=== PATIENT | female | born 1965 | race Caucasian/White ===

== ENCOUNTER → 2017-02-13 | Outpatient (CLI) | payer BC ==
--- NOTE | 2017-02-14 11:15 | MM ---
Reason for exam: screening (asymptomatic). Last mammogram was performed 1 year and 5 months ago. History: Family history of breast cancer in paternal aunt. Physical Findings: A clinical breast exam by your physician is recommended on an annual basis and results should be correlated with mammographic findings. MG Screening Mammo w CAD Bilateral CC and MLO view(s) were taken. Prior study comparison: September 14, 2015, bilateral MG screening mammo w CAD. July 10, 2014, bilateral MG screening mammo w CAD. The breast tissue is heterogeneously dense. This may lower the sensitivity of mammography. No significant changes when compared with prior studies. ASSESSMENT: Benign, BI-RAD 2 RECOMMENDATION: Routine screening mammogram of both breasts in 1 year.
== END ==
LOC: RADMAMWWP 09:29
PROVIDERS: ATTEND Family Medicine
DX: Z12.31 Encounter for screening mammogram for malignant neoplasm of breast (principal)

== ENCOUNTER → 2017-10-24 | Outpatient (CLI) | payer BC ==
--- NOTE | 2017-10-24 15:36 | XR ---
EXAMINATION TYPE: XR thoracic spine complete DATE OF EXAM: 10/24/2017 COMPARISON: None HISTORY: Pain lower posterior thorax TECHNIQUE: Three-view thoracic spine FINDINGS: There are 12 thoracic type vertebral bodies. Pedicles are intact. Disc heights are preserve d. Vertebral body heights are preserved. Some spondylosis is present. IMPRESSION: 1. No acute osseous abnormality thoracic spine.
== END | disposition home or self-care (01) ==
LOC: RADXRYALE 14:17
PROVIDERS: ATTEND Physician Assistant Medical
DX: M54.6 Pain in thoracic spine (principal)
CPT/HCPCS: 72072

== ENCOUNTER → 2018-05-22 | Outpatient (CLI) | payer BC ==
--- NOTE | 2018-05-22 16:50 | XR ---
EXAMINATION TYPE: XR lumbosacral spine min 4V DATE OF EXAM: 05/22/2018 COMPARISON: None HISTORY: Increasing chronic low back pain TECHNIQUE: Five-view lumbar spine FINDINGS: There are 6 lumbar-type vertebral bodies. T12 level may be transitional. Facets are normal. There is degenerative disc changes with loss of disc height the upper lumbar spine. Some spondylosis is present. No spondylolisthesis is evident. IMPRESSION: 1. Upper lumbar spine degenerative disc changes.
== END | disposition home or self-care (01) ==
LOC: RADXRYALE 14:02
PROVIDERS: ATTEND Physician Assistant Medical
DX: M51.36 Other intervertebral disc degeneration, lumbar region (principal)
CPT/HCPCS: 72110

== ENCOUNTER → 2018-07-09 | Outpatient (CLI) | payer BC ==
--- NOTE | 2018-07-09 15:53 | XR ---
EXAMINATION TYPE: XR chest 2V DATE OF EXAM: 07/09/2018 COMPARISON: 12/10/2017 HISTORY: Shortness of breath TECHNIQUE: Frontal and lateral views of the chest are obtained. FINDINGS: Scattered senescent parenchymal changes noted. Hyperinflation compatible with COPD. No evidence for infiltrate. No evidence for atelectasis. Heart size is stable. Mediastinal structures are stable and grossly unremarkable. No evidence for hilar prominence. Degenerative changes dorsal spine. IMPRESSION: 1. No evidence for acute pulmonary disease.
== END ==
LOC: RADXRYALE 15:39
PROVIDERS: ATTEND Family Medicine
DX: Z01.818 Encounter for other preprocedural examination (principal)
CPT/HCPCS: 71046

== ENCOUNTER → 2018-12-03 | Outpatient (CLI) | payer BC, MEDICARE ==
--- NOTE | 2018-12-04 06:57 | MR ---
MRI CERVICAL SPINE: CLINICAL HISTORY: Cervical disc disorder with myelopathy. Cervical disc displacement C5-C6 level and cervical disc displacement C6-C7 level all per order. Neck pain for one year with history of prior calle rgery per patient. TECHNIQUE: Multiplanar, multisequence imaging of the cervical spine is performed without IV contrast. COMPARISON: None. FINDINGS: Sagittal images of the cervical spine show the craniocervical junction to appear within nor mal limits. The cervical and upper thoracic spinal cord is normal in course and caliber. There is fo cus of central increased T2 hyperintensity centered to involve the C7 vertebra and C7-T1 disc space s agittal image 8 consistent with syrinx. Vertebral alignment is anatomic. There is artifact from surg ical change C5 through superior C7 level. The vertebral body and intravertebral disk heights are norm al above and below surgical levels. Slight scoliotic curvature noted on coronal images. The bone mar row signal intensity is within normal limits. Axial images show the C2-C3 level to appear within normal limits. Axial images at C3-C4 level show uncovertebral facet degenerative changes bilaterally causing mild to moderate left greater than right bilateral neural foraminal narrowing. Axial images at the C4-C5 level shows broad-based left paracentral disc protrusion and uncovertebral facet degenerative changes, there is effacement of the anterior thecal sac, there is moderate to haley re left and [id number] right-sided neural foraminal narrowing. Axial images at C5-C6 level is artifact from surgical change, there is uncovertebral facet degenerati ve changes causing mild 2 moderate bilateral neural foraminal narrowing. Axial images at C6-C7 levels are more prominent blooming artifact making evaluation of this level sub optimal. There could be anterior spinal canal effacement due to posterior protrusion of C6 vertebra, this should be correlated with CT and/or plain films. For reference sagittal image 8. Axial images at C7-T1 level shows central syrinx otherwise felt within normal limits. IMPRESSION: Postsurgical changes C5-C6 level. Small syrinx seen just below this. Degenerative change C4-C5 level is noted. Other findings as detailed above.
== END | disposition home or self-care (01) ==
LOC: RADMRIMAIN 15:41
PROVIDERS: ATTEND Neurological Surgery
DX: M48.02 Spinal stenosis, cervical region (principal); M50.021 Cervical disc disorder at C4-C5 level with myelopathy; M47.12 Other spondylosis with myelopathy, cervical region; M41.82 Other forms of scoliosis, cervical region; M54.5 Low back pain; M51.06 Intervertebral disc disorders with myelopathy, lumbar region; M51.16 Intervertebral disc disorders with radiculopathy, lumbar region; D43.2 Neoplasm of uncertain behavior of brain, unspecified; Z98.890 Other specified postprocedural states
CPT/HCPCS: 72141

== ENCOUNTER → 2019-01-03 | Outpatient (CLI) | payer BC, MEDICARE ==
--- NOTE | 2019-01-03 14:35 | XR ---
EXAMINATION TYPE: XR chest 2V DATE OF EXAM: 01/03/2019 COMPARISON: 07/09/2018 HISTORY: Preoperative examination. TECHNIQUE: Frontal and lateral views of the chest are obtained. FINDINGS: There is no focal air space opacity, pleural effusion, or pneumothorax seen. The cardiac silhouette size is within normal limits. The osseous structures are intact. Cervical spine fusion d evice is noted. Mild multilevel degenerative changes of the thoracic spine. IMPRESSION: No acute cardiopulmonary process.
== END ==
LOC: RADXRYALE 13:40
PROVIDERS: ATTEND Physician Assistant Medical
DX: Z01.811 Encounter for preprocedural respiratory examination (principal)
CPT/HCPCS: 71046

== ENCOUNTER → 2019-01-03 | Outpatient (CLI) | payer BC, MEDICARE | END | disposition home or self-care (01) | LOC: LABWHC1 14:59 | PROVIDERS: ATTEND Neurological Surgery | DX: M50.00 Cervical disc disorder with myelopathy, unspecified cervical region (principal) | CPT/HCPCS: 86850 ==

== ENCOUNTER → 2019-09-17 | Outpatient (CLI) | payer BC, MEDICARE ==
--- NOTE | 2019-09-17 14:21 | XR ---
EXAMINATION TYPE: AP view pelvis and 2 views each hip DATE OF EXAM: 09/17/2019 COMPARISON: NONE HISTORY: 54-year-old female with sacrococcygeal dysfunction, extreme left hip and leg pain with numbn ess down both legs. M51.16, M53.3 FINDINGS: SI joints show mild degenerative change but appear intact as is the pubic symphysis and both hips. No acute fracture, subluxation, dislocation. Multiple pelvic phleboliths. IMPRESSION: Mild degenerative change suggested at both SI joints. No acute osseous abnormality seen.
--- NOTE | 2019-09-17 14:26 | XR ---
EXAMINATION TYPE: XR lumbar spine with bend/flex DATE OF EXAM: 09/17/2019 COMPARISON: 05/22/2018 HISTORY: 54-year-old female M51.16, M53.3 DD,SACROCOCCYGEAL DIS TECHNIQUE: 7 views FINDINGS: Hypertrophic facet arthropathy throughout. Grade 1 retrolisthesis at L1-L2. Moderate degenerative dis c disease T12-L1 and L1-L2 with joint space narrowing, vacuum phenomenon, and endplate sclerosis and spondylosis. Mild degenerative disc disease throughout the remainder of the lumbar spine. There is sl ight levoconvex curvature along the mid lumbar spine similar to prior. Extension results in trace gra de 1 retrolisthesis at L2-L3. No dynamic subluxation at L1-L2. Vertebral body heights are preserved. IMPRESSION: 1. Hypertrophic facet arthropathy throughout. Moderate degenerative disc disease thoracolumbar juncti on and upper lumbar spine. 2. Fixed grade 1 retrolisthesis at L1-L2. 3. Development of a minimal grade 1 retrolisthesis at L2-L3 upon extension.
== END | disposition home or self-care (01) ==
LOC: RADXRYALE 13:08
PROVIDERS: ATTEND Neurological Surgery
DX: M51.15 Intervertebral disc disorders with radiculopathy, thoracolumbar region (principal); M43.16 Spondylolisthesis, lumbar region; M46.96 Unspecified inflammatory spondylopathy, lumbar region; M53.3 Sacrococcygeal disorders, not elsewhere classified
CPT/HCPCS: 72114; 73521

== ENCOUNTER 2019-11-07 12:34 | Observation (INO) | payer BC, MEDICARE ==
[2019-11-07] MEDS ORDERED: SODIUM CHLORIDE 0.9% 1,000 ML IV STA (13:00)
[2019-11-07] MEDS ORDERED: HYDROmorphone 1 MG/ML 1 ML SYRINGE IVP STA (13:00)
[2019-11-07] MEDS ORDERED: KETOROLAC 30 MG/ML 1 ML VIAL IVP STA (13:01)
[2019-11-07] MEDS ORDERED: diphenhydrAMINE 50 MG/ML 1 ML VIAL IVP STA (13:01)
--- NOTE | 2019-11-07 13:05 | ED ---
Back Pain HPI - General Chief Complaint: Back Pain/Injury Stated Complaint: back pain Time Seen by Provider: 11/07/19 12:40 Source: patient, RN notes reviewed, old records reviewed Limitations: no limitations - History of Present Illness Initial Comments: This is a 54-year-old female DF for evaluation patient presents with acute on chronic back pain. History of multiple back surgeries in her life. Going on 3 months of chronic back pain debility unable to get out of bed. No significant neurological changes noted no loss of bowel or bladder no new traumas noted fevers MD Complaint: back pain -: month(s) Similar Symptoms Previously: Yes Place: home Radiation: none Severity: severe Severity scale (1-10): 10 Consistency: constant Improves With: immobilization Worsens With: movement Context: unknown Associated Symptoms: denies other symptoms, other (Patient does admit to some depression related to significant chronic pain) - Related Data Home Medications Medication Instructions Recorded Confirmed DULoxetine HCL [Cymbalta] 30 mg PO DAILY 11/07/19 11/07/19 HYDROcodone/APAP 7.5-325MG [[place] 1 tab PO TID 11/07/19 11/07/19 7.5-325] Levothyroxine Sodium [Synthroid] 125 mcg PO DAILY 11/07/19 11/07/19 Previous Rx's Medication Instructions Recorded amLODIPine [Norvasc] 10 mg PO DAILY 30 Days #30 tablet 11/10/19 Allergies Allergy/AdvReac Type Severity Reaction Status Date / Time No Known Allergies Allergy Verified 11/07/19 13:18 Review of Systems ROS Statement: Those systems with pertinent positive or pertinent negative responses have been documented in the HPI. ROS Other: All systems not noted in ROS Statement are negative. Past Medical History Past Medical History: Fibromyalgia, Thyroid Disorder Additional Past Medical History / Comment(s): DJD History of Any Multi-Drug Resistant Organisms: None Reported Past Surgical History: Back Surgery Past Psychological History: No Psychological Hx Reported Smoking Status: Current every day smoker Past Alcohol Use History: Rare Past Drug Use History: Marijuana - Past Family History Mother Family Medical History: Cancer, COPD, Hypertension Additional Family Medical History / Comment(s): Mother had lung cancer. She was a smoker. Father Family Medical History: Cancer Additional Family Medical History / Comment(s): Father at the age of 49 yrs from lung cancer. He was exposed to asbestos thru work and was a smoker. General Exam Limitations: no limitations General appearance: alert, in no apparent distress Head exam: Present: atraumatic, normocephalic, normal inspection Eye exam: Present: normal appearance, PERRL, EOMI. Absent: scleral icterus, conjunctival injection, periorbital swelling ENT exam: Present: normal exam, mucous membranes moist Neck exam: Present: normal inspection. Absent: tenderness, meningismus, lymphadenopathy Respiratory exam: Present: normal lung sounds bilaterally. Absent: respiratory distress, wheezes, rales, rhonchi, stridor Cardiovascular Exam: Present: regular rate, normal rhythm, normal heart sounds. Absent: systolic murmur, diastolic murmur, rubs, gallop, clicks GI/Abdominal exam: Present: soft, normal bowel sounds. Absent: distended, tenderness, guarding, rebound, rigid Extremities exam: Present: normal inspection, full ROM, normal capillary refill. Absent: tenderness, pedal edema, joint swelling, calf tenderness Back exam: Present: normal inspection Neurological exam: Present: alert, oriented X3, CN II-XII intact Psychiatric exam: Present: normal affect, normal mood Skin exam: Present: warm, dry, intact, normal color. Absent: rash Course Vital Signs 11/07/19 11/07/19 11/07/19 12:38 13:04 14:05 Temperature 98.4 F Pulse Rate 95 79 76 Respiratory 20 18 17 Rate Blood Pressure 188/79 176/89 O2 Sat by Pulse 97 100 98 Oximetry - Reevaluation(s) Reevaluation #1: 11/07/19 13:05 Medical records reviewed Reevaluation #2: 11/07/19 14:05 Patient has improved pain control Medical Decision Making - Medical Decision Making 54 female DF for evaluation of acute on chronic pain. Patient admitted for pain control MRI to further evaluate cause of pain - Lab Data Result diagrams: 11/08/19 05:50 11/09/19 05:41 Lab Results 11/07/19 11/07/19 11/07/19 Range/Units 13:34 13:34 13:34 WBC 9.3 (3.8-10.6) k/uL RBC 5.05 (3.80-5.40) m/uL Hgb 15.3 (11.4-16.0) gm/dL Hct 45.3 (34.0-46.0) % MCV 89.6 (80.0-100.0) fL MCH 30.4 (25.0-35.0) pg MCHC 33.9 (31.0-37.0) g/dL RDW 12.5 (11.5-15.5) % Plt Count 251 (150-450) k/uL Neutrophils % 70 % Lymphocytes % 22 % Monocytes % 4 % Eosinophils % 3 % Basophils % 1 % Neutrophils # 6.4 (1.3-7.7) k/uL Lymphocytes # 2.1 (1.0-4.8) k/uL Monocytes # 0.3 (0-1.0) k/uL Eosinophils # 0.2 (0-0.7) k/uL Basophils # 0.1 (0-0.2) k/uL ESR (0-20) mm/hr Sodium 139 (137-145) mmol/L Potassium 4.1 (3.5-5.1) mmol/L Chloride 105 (98-107) mmol/L Carbon Dioxide 23 (22-30) mmol/L Anion Gap 11 mmol/L BUN 15 (7-17) mg/dL Creatinine 0.56 (0.52-1.04) mg/dL Est GFR (CKD-EPI)AfAm >90 (>60 ml/min/1.73 sqM) Est GFR (CKD-EPI)NonAf >90 (>60 ml/min/1.73 sqM) Glucose 98 (74-99) mg/dL Calcium 10.0 (8.4-10.2) mg/dL Phosphorus 4.1 (2.5-4.5) mg/dL Magnesium 2.0 (1.6-2.3) mg/dL Total Bilirubin 0.6 (0.2-1.3) mg/dL AST 25 (14-36) U/L ALT 21 (4-34) U/L Alkaline Phosphatase 82 (38-126) U/L Troponin I <0.012 (0.000-0.034) ng/mL C-Reactive Protein (<10.0) mg/L Total Protein 7.4 (6.3-8.2) g/dL Albumin 4.8 (3.5-5.0) g/dL Urine Color Urine Appearance (Clear) Urine pH (5.0-8.0) Ur Specific [place] (1.001-1.035) Urine Protein (Negative) Urine Glucose (UA) (Negative) Urine Ketones (Negative) Urine Blood (Negative) Urine Nitrite (Negative) Urine Bilirubin (Negative) Urine Urobilinogen (<2.0) mg/dL Ur Leukocyte Esterase (Negative) 11/07/19 11/08/19 11/08/19 Range/Units 14:03 05:50 05:50 WBC 10.6 (3.8-10.6) k/uL RBC 4.86 (3.80-5.40) m/uL Hgb 15.0 (11.4-16.0) gm/dL Hct 44.6 (34.0-46.0) % MCV 91.6 (80.0-100.0) fL MCH 30.8 (25.0-35.0) pg MCHC 33.6 (31.0-37.0) g/dL RDW 12.4 (11.5-15.5) % Plt Count 266 (150-450) k/uL Neutrophils % 83 % Lymphocytes % 12 % Monocytes % 3 % Eosinophils % 1 % Basophils % 0 % Neutrophils # 8.8 H (1.3-7.7) k/uL Lymphocytes # 1.3 (1.0-4.8) k/uL Monocytes # 0.4 (0-1.0) k/uL Eosinophils # 0.1 (0-0.7) k/uL Basophils # 0.0 (0-0.2) k/uL ESR 5 (0-20) mm/hr Sodium 140 (137-145) mmol/L Potassium 5.3 H (3.5-5.1) mmol/L Chloride 106 (98-107) mmol/L Carbon Dioxide 27 (22-30) mmol/L Anion Gap 7 mmol/L BUN 12 (7-17) mg/dL Creatinine 0.56 (0.52-1.04) mg/dL Est GFR (CKD-EPI)AfAm >90 (>60 ml/min/1.73 sqM) Est GFR (CKD-EPI)NonAf >90 (>60 ml/min/1.73 sqM) Glucose 121 H (74-99) mg/dL Calcium 9.7 (8.4-10.2) mg/dL Phosphorus (2.5-4.5) mg/dL Magnesium (1.6-2.3) mg/dL Total Bilirubin (0.2-1.3) mg/dL AST (14-36) U/L ALT (4-34) U/L Alkaline Phosphatase (38-126) U/L Troponin I (0.000-0.034) ng/mL C-Reactive Protein <5.0 (<10.0) mg/L Total Protein (6.3-8.2) g/dL Albumin (3.5-5.0) g/dL Urine Color Light Yellow Urine Appearance Clear (Clear) Urine pH 7.0 (5.0-8.0) Ur Specific [place] 1.007 (1.001-1.035) Urine Protein Negative (Negative) Urine Glucose (UA) Negative (Negative) Urine Ketones Negative (Negative) Urine Blood Negative (Negative) Urine Nitrite Negative (Negative) Urine Bilirubin Negative (Negative) Urine Urobilinogen <2.0 (<2.0) mg/dL Ur Leukocyte Esterase Negative (Negative) 11/09/19 Range/Units 05:41 WBC (3.8-10.6) k/uL RBC (3.80-5.40) m/uL Hgb (11.4-16.0) gm/dL Hct (34.0-46.0) % MCV (80.0-100.0) fL MCH (25.0-35.0) pg MCHC (31.0-37.0) g/dL RDW (11.5-15.5) % Plt Count (150-450) k/uL Neutrophils % % Lymphocytes % % Monocytes % % Eosinophils % % Basophils % % Neutrophils # (1.3-7.7) k/uL Lymphocytes # (1.0-4.8) k/uL Monocytes # (0-1.0) k/uL Eosinophils # (0-0.7) k/uL Basophils # (0-0.2) k/uL ESR (0-20) mm/hr Sodium 139 (137-145) mmol/L Potassium 4.4 (3.5-5.1) mmol/L Chloride 105 (98-107) mmol/L Carbon Dioxide 27 (22-30) mmol/L Anion Gap 7 mmol/L BUN 13 (7-17) mg/dL Creatinine 0.60 (0.52-1.04) mg/dL Est GFR (CKD-EPI)AfAm >90 (>60 ml/min/1.73 sqM) Est GFR (CKD-EPI)NonAf >90 (>60 ml/min/1.73 sqM) Glucose 110 H (74-99) mg/dL Calcium 9.3 (8.4-10.2) mg/dL Phosphorus (2.5-4.5) mg/dL Magnesium (1.6-2.3) mg/dL Total Bilirubin (0.2-1.3) mg/dL AST (14-36) U/L ALT (4-34) U/L Alkaline Phosphatase (38-126) U/L Troponin I (0.000-0.034) ng/mL C-Reactive Protein (<10.0) mg/L Total Protein (6.3-8.2) g/dL Albumin (3.5-5.0) g/dL Urine Color Urine Appearance (Clear) Urine pH (5.0-8.0) Ur Specific [place] (1.001-1.035) Urine Protein (Negative) Urine Glucose (UA) (Negative) Urine Ketones (Negative) Urine Blood (Negative) Urine Nitrite (Negative) Urine Bilirubin (Negative) Urine Urobilinogen (<2.0) mg/dL Ur Leukocyte Esterase (Negative) Disposition Clinical Impression: Mechanical back pain, Sciatica, Mid back pain, Lumbar radiculopathy Disposition: ADMITTED IP TO THIS [facility] Condition: Fair Is patient prescribed a controlled substance at d/c from ED?: No
[2019-11-07] MEDS ORDERED: diphenhydrAMINE 50 MG/ML 1 ML VIAL IVP PRN (13:06)
[2019-11-07] MEDS ORDERED: DEXAMETHASONE SOD PHOSPHATE 10 MG/ML 1 ML VIAL IV STA (13:06)
[2019-11-07 13:42] LABS: Basophils # (A) 0.1 k/uL (0-0.2); Basophils % (A) 1 %; Eosinophils # (A) 0.2 k/uL (0-0.7); Eosinophils % (A) 3 %; HCT 45.3 % (34.0-46.0); HGB 15.3 gm/dL (11.4-16.0); Lymphocytes # (A) 2.1 k/uL (1.0-4.8); Lymphocytes % (A) 22 %; MCH 30.4 pg (25.0-35.0); MCHC 33.9 g/dL (31.0-37.0); MCV 89.6 fL (80.0-100.0); Mean Platelet Volume 7.9; Monocytes # (A) 0.3 k/uL (0-1.0); Monocytes % (A) 4 %; Neutrophils # (A) 6.4 k/uL (1.3-7.7); Neutrophils % (A) 70 %; Platelet Count 251 k/uL (150-450); RBC 5.05 m/uL (3.80-5.40); RDW 12.5 % (11.5-15.5); WBC 9.3 k/uL (3.8-10.6)
[2019-11-07 13:51] LABS: ALT 21 U/L (4-34); AST 25 U/L (14-36); African American GFR (CKD) >90 (>60 ml/min/1.73 sqM); Albumin 4.8 g/dL (3.5-5.0); Alkaline Phosphatase 82 U/L (38-126); Anion Gap 11 mmol/L; Blood Urea Nitrogen 15 mg/dL (7-17); Carbon Dioxide 23 mmol/L (22-30); Chloride 105 mmol/L (98-107); Glucose 98 mg/dL (74-99); Non-African American GFR(CKD) >90 (>60 ml/min/1.73 sqM); Phosphorus 4.1 mg/dL (2.5-4.5); Potassium 4.1 mmol/L (3.5-5.1); Sodium 139 mmol/L (137-145); Total Bilirubin 0.6 mg/dL (0.2-1.3); Total Protein 7.4 g/dL (6.3-8.2)
[2019-11-07 14:31] LABS: Appearance,Urine Clear (Clear); Bilirubin,Urine Negative (Negative); Blood,Urine Negative (Negative); Color,Urine Light Yellow; Glucose,Urine (UA) Negative (Negative); Ketones,Urine Negative (Negative); Leukocyte Esterase,Urine Negative (Negative); Nitrite,Urine Negative (Negative); Protein,Urine Negative (Negative); Specific Gravity,Urine 1.007 (1.001-1.035); Urobilinogen,Urine <2.0 mg/dL (<2.0)
[2019-11-07] MEDS: HYDROmorphone 1 MG/ML 1 ML SYRINGE IVP PRN (17:31)
--- NOTE | 2019-11-07 18:40 | MR ---
EXAMINATION TYPE: MR lumbar spine wo/w con DATE OF EXAM: 11/07/2019 COMPARISON: None HISTORY: Back pain CONTRAST: Standard multiplanar, multisequence MRI departmental protocol utilizing 9 mL intravenous Gadavist jacy olinium contrast. There is a large posterior L4-5 lumbar disc herniation into the spinal canal on the left side and sig nificantly impinging on the neural foramen and lateral recess. There is minor posterior endplate spur formation at T11-12 and T12-L1. There is a small posterior left side L3-4 lumbar disc herniation. Th ere is mild impingement on the lateral recess. There is no compression fracture. There is narrowing o f lumbar disc spaces throughout the lumbar spine. There is no paraspinal mass. There appears to be a left side L4 laminectomy defect. There is some enhancement of the herniated large disc at L4-5 on the left side. There could BE a sign ificant component of epidural scar tissue. I see no focal bone destruction. Sacroiliac joints appear intact. IMPRESSION: Posterior disc herniations on the left side at L3-4 and L4-5. Disc herniation much larger at L4-5. Th ere is also epidural enhancement at L4-5 disc herniation that suggests the presence of significant sc ar tissue.
[2019-11-07] MEDS: KETOROLAC 30 MG/ML 1 ML VIAL IVP SCH ×2 (18:56→23:58)
--- NOTE | 2019-11-07 19:57 | HP ---
HISTORY AND PHYSICAL CHIEF COMPLAINT: Back pain. HISTORY OF PRESENT ILLNESS: This 54-year-old woman with a past medical history of fibromyalgia, hypothyroidism, history of chronic back pain, history of DJD, history of anxiety, depression, being followed by Dr. Gianluca Edwards in the outpatient setting, was complaining of back pain. The patient had multiple back surgeries previously. The patient is followed by Dr. Burns. The patient recently had L4-L5 surgery. The patient has been complaining of back pain for the last 3 months. The patient was unable to get into the doctor's office or have an MRI because of the COVID, according to the patient. Currently the patient is complaining of severe back pain, 01/09. Patient feels like she will be out of her mind. The pain was radiating to both legs, left more than the right, aggravated with any slight activity. The patient also had multiple fusions on the back. The basic labs are normal. MRI is pending at this time. There is no history of any fever, rigor or chills. No history of headache, loss of consciousness, seizures. PAST MEDICAL HISTORY: History of fibromyalgia, hypothyroidism, history of chronic back pain, multiple back surgeries. HOME MEDICATIONS: 1. Synthroid 125 mcg p.o. daily. 2. [place] 7.5 mg t.i.d. 3. Cymbalta 30 mg daily. ALLERGIES: NONE. FAMILY HISTORY: History of COPD, hypertension, history of lung cancer. SOCIAL HISTORY: History of alcohol. History of THC. REVIEW OF SYSTEMS: ENT: No diminished hearing. No diminished vision. CARDIOVASCULAR SYSTEM: As mentioned earlier. RESPIRATORY SYSTEM: As mentioned earlier. GI: No nausea, vomiting. : No dysuria or retention. NERVOUS SYSTEM: No numbness, weakness. ALLERGY/IMMUNOLOGY: No asthma, hayfever. MUSCULOSKELETAL: As mentioned earlier. HEMATOLOGY/ONCOLOGY: No history of anemia. ENDOCRINE: Hypothyroidism. CONSTITUTIONAL: As mentioned earlier. DERMATOLOGY: Negative. RHEUMATOLOGY: Negative. PSYCHIATRY: As mentioned earlier. PHYSICAL EXAMINATION: Patient alert and oriented x3. Pulse 78, blood pressure 143/86, respiration 18, temperature 98.8, pulse ox 96% on room air. HEENT: Conjunctivae normal. NECK: No jugular venous distention. CARDIOVASCULAR SYSTEM: S1, S2 muffled. RESPIRATORY SYSTEM: Breath sounds diminished at the bases. No rhonchi. No crackles. ABDOMEN: Soft, non-tender. No mass palpable. LEGS: No edema. No swelling. [id number] test is positive, left more than the right. NERVOUS SYSTEM: Higher functions as mentioned earlier. Moves all 4 limbs. No focal motor or sensory deficit. LYMPHATICS: No lymph node palpable in neck, axillae or groin. SKIN: No ulcer, rash, bleeding. JOINTS: No active deforming arthropathy. The slightest movement in the bed is painful for the patient because of back pain. LABS: CBC, BMP within normal limits. ASSESSMENT: 1. Severe back pain, degenerative joint disease, acute on chronic, with exacerbation with failure of outpatient treatment. 2. History of multiple back surgeries and herniated disc with cervical and back pain. 3. Fibromyalgia. 4. Hypothyroidism. 5. History of section. 6. History of cardiac catheterization. 7. History of anxiety, depression. 8. Continued ongoing nicotine dependence. 9. History of tetrahydrocannabinol for pain control. RECOMMENDATIONS AND DISCUSSION: In this 54-year-old woman who presented with multiple medical issues, at this time we will monitor the patient closely, continue the current medications, continue symptomatic treatment. Otherwise, IV pain medications. MRI of the spine. Consult Dr. Brandon for followup. Resume the home medications. Prognosis guarded because of multiple complex medical issues. Further recommendations to follow. A copy of this dictation is being forwarded to Dr. Edwards, who is the primary physician. MMODL / KEITHN: [id number] /
[2019-11-07] MEDS: HYDROcodone/APAP 7.5-325MG 1 EACH TAB PO SCH (21:42)
[2019-11-08] MEDS: HYDROmorphone 1 MG/ML 1 ML SYRINGE IVP PRN ×3 (01:24→16:50)
[2019-11-08] MEDS: LEVOTHYROXINE 125 MCG TAB PO SCH (06:02)
[2019-11-08] MEDS: KETOROLAC 30 MG/ML 1 ML VIAL IVP SCH ×4 (06:02→23:55)
[2019-11-08 06:05] LABS: Basophils % (A) 0 %; Eosinophils # (A) 0.1 k/uL (0-0.7); Eosinophils % (A) 1 %; HCT 44.6 % (34.0-46.0); Lymphocytes # (A) 1.3 k/uL (1.0-4.8); Lymphocytes % (A) 12 %; MCH 30.8 pg (25.0-35.0); MCHC 33.6 g/dL (31.0-37.0); MCV 91.6 fL (80.0-100.0); Mean Platelet Volume 7.7; Monocytes # (A) 0.4 k/uL (0-1.0); Monocytes % (A) 3 %; Neutrophils # (A) 8.8 k/uL (1.3-7.7); Neutrophils % (A) 83 %; Platelet Count 266 k/uL (150-450); RBC 4.86 m/uL (3.80-5.40); RDW 12.4 % (11.5-15.5); WBC 10.6 k/uL (3.8-10.6)
[2019-11-08 06:21] LABS: African American GFR (CKD) >90 (>60 ml/min/1.73 sqM); Anion Gap 7 mmol/L; Blood Urea Nitrogen 12 mg/dL (7-17); Calcium 9.7 mg/dL (8.4-10.2); Carbon Dioxide 27 mmol/L (22-30); Chloride 106 mmol/L (98-107); Glucose 121 mg/dL (74-99); Non-African American GFR(CKD) >90 (>60 ml/min/1.73 sqM); Potassium 5.3 mmol/L (3.5-5.1); Sodium 140 mmol/L (137-145)
[2019-11-08 06:44] LABS: Erythrocyte Sedimentation Rate 5 mm/hr (0-20)
[2019-11-08 07:15] LABS: C Reactive Protein <5.0 mg/L (<10.0)
[2019-11-08] MEDS: DULoxetine HCL 30 MG CAPSULE.DR PO SCH (10:02)
[2019-11-08] MEDS: HYDROcodone/APAP 7.5-325MG 1 EACH TAB PO SCH ×3 (10:02→22:07)
--- NOTE | 2019-11-08 11:26 | P.CNOR ---
History of Present Illness - HPI Consult date: 11/08/19 History of present illness: This is a 54 year-old female admitted for acute on chronic back pain. Patient's past medical history is significant for hypothyroidism, fibromyalgia and blindness in the left eye. Patient states that for the last 1-2 months she has been struggling with increasing lower back pain. Patient states that one month ago she was on a course of prednisone and currently takes [place] for pain. Patient states that her pain is made worse with walking, sitting or standing for extended periods of time. Patient states that her pain improves with lying down. Patient reports intermittent numbness and radicular pain in the left lower extremity. Patient denies any change in bowel or bladder function or any saddle anesthesia. Patient denies any recent injury, fever or chills. Patient has a history of herniated discs and previous laminectomy and discectomy of the lumbar spine by Dr Burns in July 2018. Patient also reports a history of 6 level cervical fusion by Dr. Burns. Patient is a current smoker. Review of Systems See HPI. Past Medical History Past Medical History: Fibromyalgia, Thyroid Disorder Additional Past Medical History / Comment(s): Chronic cervicle/back pain, herniated discs T11/T12, arterial defect with cardiac ischemia if stressed per pt, legally blind L eye, hypothyroid. History of Any Multi-Drug Resistant Organisms: None Reported Past Surgical History: Back Surgery, Section, Heart Catheterization Additional Past Surgical History / Comment(s): Anerior and posterior cervical surgery-fusions, lumbar lami/discectomy, tummy tuck Past Anesthesia/Blood Transfusion Reactions: No Reported Reaction, Motion Sickness Past Psychological History: Anxiety, Depression Additional Psychological History / Comment(s): Pt resides with her spouse. She is disable d/t back. She is normally independent. Smoking Status: Current every day smoker Past Alcohol Use History: Rare Additional Past Alcohol Use History / Comment(s): Pt started smoking in 1980 and is a ppd smoker. Past Drug Use History: Marijuana Additional Drug Use History / Comment(s): Pt uses marijuana in edibles for pain controll. - Past Family History Mother Family Medical History: Cancer, COPD, Hypertension Additional Family Medical History / Comment(s): Mother had lung cancer. She was a smoker. Father Family Medical History: Cancer Additional Family Medical History / Comment(s): Father at the age of 49 yrs from lung cancer. He was exposed to asbestos thru work and was a smoker. Medications and Allergies Home Medications Medication Instructions Recorded Confirmed Type DULoxetine HCL [Cymbalta] 30 mg PO DAILY 11/07/19 11/07/19 History HYDROcodone/APAP 7.5-325MG [[place] 1 tab PO TID 11/07/19 11/07/19 History 7.5-325] Levothyroxine Sodium [Synthroid] 125 mcg PO DAILY 11/07/19 11/07/19 History Allergies Allergy/AdvReac Type Severity Reaction Status Date / Time No Known Allergies Allergy Verified 11/07/19 13:18 Physical Examination On exam patient is resting comfortably in bed in no acute distress. Patient is alert and oriented 3. Patient is able to transition from lying down to sitting without any pain or difficulty. Patient has good range of motion of bilateral upper and lower extremities. 5/5 strength of bilateral upper and lower extremities. There is no tenderness to palpation over the spine. There is a healed surgical scar in the lumbar area. There is no swelling, erythema, step- off or deformity. Sensation is intact. Neurovascular status and circulatory status are intact. Results An MRI of the lumbar spine dated 11/07/2019 shows posterior disc herniations on the left side at L3/4 and L4/5. Disc herniation much larger at L4/5. There is also epidural enhancement at L4/5 disc herniation that suggests the presence of significant scar tissue. - Labs Labs: Abnormal Lab Results - Last 24 Hours (Table) 11/08/19 11/08/19 Range/Units 05:50 05:50 Neutrophils # 8.8 H (1.3-7.7) k/uL Potassium 5.3 H (3.5-5.1) mmol/L Glucose 121 H (74-99) mg/dL H & H 11/07/19 11/08/19 Range/Units 13:34 05:50 Hgb 15.3 15.0 (11.4-16.0) gm/dL Hct 45.3 44.6 (34.0-46.0) % Result Diagrams: 11/08/19 05:50 11/08/19 05:50 Assessment and Plan (1) Acute exacerbation of chronic low back pain Current Visit: Yes Status: Acute Code(s): M54.5 - LOW BACK PAIN; G89.29 - OTHER CHRONIC PAIN SNOMED Code(s): 998934199 (2) Lumbar radiculopathy Current Visit: Yes Status: Acute Code(s): M54.16 - RADICULOPATHY, LUMBAR REGION SNOMED Code(s): 529461551 Plan: #1. Imaging is reviewed. Patient's symptoms are chronic in nature. No surgical intervention planned. #2. Will consult pain management. Recommend follow-up with the patient's neurosurgeon upon discharge.
[2019-11-08] MEDS: predniSONE 20 MG TAB PO SCH (14:00)
--- NOTE | 2019-11-08 14:38 | P.PN ---
Subjective Progress Note Date: 11/08/19 Principal diagnosis: Acute on chronic low back pain Ms. Cazares is a 54-year-old female with history of chronic low back pain, DJD, anxiety, depression being followed by Dr. Gianluca Roca , in outpatient setting coming in with a chief complaint of worsening of chronic low back pain. The patient follows with Dr. Burns, the spine surgeon. Patient states that she recently had L4-L5 surgery done in May 2018 and apparently was doing okay until last week. Her pain has been worsening for the past 3 months but in the last week had worsened to the point where it was 10 out of 10 in severity. Patient had an MRI of her lower back done showing posterior disc herniation on t he left side at L3-L4 and L4-L5. Disc herniation much larger at L4-L5. There is also epidural enhancement at L4-L5 disc herniation this suggests the presence of significant scar tissue. So eventually orthopedic surgery was consulted who evaluated the patient today, and suggested no surgical intervention currently. They're advised pain consult. As it is the weekend we do not have pain services on board, so trying to adjust her pain medication regimen currently. Patient is lying in bed comfortably appears to be no acute distress. She states that I'll order that she has been getting is helping her for a few hours but later on when she stands for a few minutes, the pain becomes really bad. Patient denies having any loss of bladder or bowel movements. She states the pain radiates from her low back to the left side of the thigh. She denies having any weakness of her lower extremities. Patient's gait has been normal. Objective - Vital Signs Vital signs: Vital Signs Temp 98.1 F 11/08/19 07:50 Pulse 74 11/08/19 08:28 Resp 18 11/08/19 08:28 BP 143/86 11/08/19 07:50 Pulse Ox 99 11/08/19 07:50 Intake & Output 11/07/19 11/08/19 11/08/19 18:59 06:59 18:59 Intake Total 500 Balance 500 Weight 90.718 kg Intake: Oral 500 Other: Voiding Method Toilet Toilet Toilet # Voids 1 2 - Exam PHYSICAL EXAM GEN. APPEARANCE: alert, in no apparent distress HEENT : No pallor. No icterus. No JVD. RESPIRATORY EXAM: Bilateral breath sounds was to. No wheeze or crackles. CARDIOVASCULAR EXAM: S1-S2 heard. GI/ABDOMINAL EXAM: Abdomen is soft. Nontender. Normal bowel sounds. EXTREMITIES EXAM: No edema. BACK EXAM: Mild point tenderness on the parasternal area on the left side in the L4-L5 area. NEUROLOGICAL EXAM: alert, oriented X3, Strength is 5 out of 5 in all 4 extremities. PSYCHIATRIC EXAM: normal affect, normal mood SKIN EXAM: No rash - Labs CBC & Chem 7: 11/08/19 05:50 11/08/19 05:50 Labs: Abnormal Lab Results - Last 24 Hours (Table) 11/08/19 11/08/19 Range/Units 05:50 05:50 Neutrophils # 8.8 H (1.3-7.7) k/uL Potassium 5.3 H (3.5-5.1) mmol/L Glucose 121 H (74-99) mg/dL Assessment and Plan Assessment: ASSESSMENT Acute on chronic low back pain failed outpatient therapy History of multiple back surgeries and herniated disc with cervical and back pain Fibromyalgia Hypothyroidism Anxiety with depression Ongoing nicotine dependence PLAN: Patient had an MRI of the lumbar spine showing disc herniation larger at L4-L5 and also at L3-L4. Also there was a significant scar tissue at L4-L5 disc herniation. Patient has been getting Dilaudid 1 mg every 4 hours, that is changed to 2 mg every 4 hours. Continuing [place] and ketorolac on when necessary basis. We'll add 20 mg of prednisone, as the patient states that steroids work for her back pain during exacerbations. Further recommendations to follow depending on the progress of the patient.
[2019-11-08] MEDS: PANTOPRAZOLE 40 MG TABLET PO SCH (18:17)
[2019-11-09] MEDS: HYDROmorphone 1 MG/ML 1 ML SYRINGE IVP PRN ×4 (01:47→17:04)
[2019-11-09 06:05] LABS: African American GFR (CKD) >90 (>60 ml/min/1.73 sqM); Anion Gap 7 mmol/L; Blood Urea Nitrogen 13 mg/dL (7-17); Calcium 9.3 mg/dL (8.4-10.2); Carbon Dioxide 27 mmol/L (22-30); Chloride 105 mmol/L (98-107); Glucose 110 mg/dL (74-99); Non-African American GFR(CKD) >90 (>60 ml/min/1.73 sqM); Potassium 4.4 mmol/L (3.5-5.1); Sodium 139 mmol/L (137-145)
[2019-11-09] MEDS: KETOROLAC 30 MG/ML 1 ML VIAL IVP SCH ×3 (06:16→17:54)
[2019-11-09] MEDS: LEVOTHYROXINE 125 MCG TAB PO SCH (06:16)
[2019-11-09] MEDS: PANTOPRAZOLE 40 MG TABLET PO SCH (08:02)
[2019-11-09] MEDS: predniSONE 20 MG TAB PO SCH (08:02)
[2019-11-09] MEDS: DULoxetine HCL 30 MG CAPSULE.DR PO SCH (08:02)
[2019-11-09] MEDS: HYDROcodone/APAP 7.5-325MG 1 EACH TAB PO SCH ×3 (09:45→21:56)
[2019-11-09] MEDS: DOCUSATE 100 MG CAP PO SCH (09:46)
[2019-11-09 15:32] VITALS: RESP 16
--- NOTE | 2019-11-09 16:33 | P.PN ---
Subjective Progress Note Date: 11/09/19 Principal diagnosis: Acute on chronic low back pain Intractable Ms. Cazares is a 54-year-old female with history of chronic low back pain, DJD, anxiety, depression being followed by Dr. Gianluca Roca , in outpatient setting coming in with a chief complaint of worsening of chronic low back pain. The patient follows with Dr. Burns, the spine surgeon. Patient states that she recently had L4-L5 surgery done in May 2018 and apparently was doing okay until last week. Her pain has been worsening for the past 3 months but in the last week had worsened to the point where it was 10 out of 10 in severity. Patient had an MRI of her lower back done showing posterior disc herniation on the left side at L3-L4 and L4-L5. Disc herniation much larger at L4-L5. There is also epidural enhancement at L4-L5 disc herniation this suggests the presence of significant scar tissue. So eventually orthopedic surgery was consulted who evaluated the patient today, and suggested no surgical intervention currently. They're advised pain consult. As it is the weekend we do not have pain services on board, so trying to adjust her pain medication regimen currently. On 11/09/2019- patient is lying in bed appears to be in no acute distress. No acute events reported by nursing staff. Patient states the pain is still 8 out of 10 in her lower back mostly on the left side radiating to her left leg. She states lying down her pain is 5 out of 10, but when she gets up to use the res troom or pressure over her pain is worse and that she cannot tolerate it. States that the pain medication are taking the edge of the pain. Patient denies having any bowel or bladder incontinence. Denies having any fevers chills or rigors. No chest pain, palpitations, cough, difficulty breathing. No bowel pain nausea vomiting or diarrhea. No dysuria or hematuria. Patient's vitals stable over the past 24 hours. Systolic blood pressure slightly on the higher side. Electrolytes from this morning within normal limits. Active Medications Hydrocodone Bitart/Acetaminophen ([place] 7.5-325) 1 each PO TID [place] Last Admin: 11/09/19 15:45 Dose: 1 each Documented by: Diphenhydramine HCl (Benadryl) 25 mg IVP Q6HR PRN PRN Reason: Allergy Symptoms Docusate Sodium (Colace) 100 mg PO DAILY [facility] Last Admin: 11/09/19 09:46 Dose: 100 mg Documented by: Duloxetine HCl (Cymbalta) 30 mg PO DAILY [facility] Last Admin: 11/09/19 08:02 Dose: 30 mg Documented by: Hydromorphone HCl (Dilaudid) 2 mg IVP Q4HR PRN PRN Reason: Pain Last Admin: 11/09/19 12:41 Dose: 2 mg Documented by: Ketorolac Tromethamine (Toradol) 15 mg IVP Q6HR [facility] Stop: 11/11/19 13:06 Last Admin: 11/09/19 11:57 Dose: 15 mg Documented by: Levothyroxine Sodium (Synthroid) 125 mcg PO DAILY@0630 [facility] Last Admin: 11/09/19 06:16 Dose: 125 mcg Documented by: Pantoprazole Sodium (Protonix) 40 mg PO AC-BRKFST [facility] Last Admin: 11/09/19 08:02 Dose: 40 mg Documented by: Prednisone () 20 mg PO DAILY [facility] Last Admin: 11/09/19 08:02 Dose: 20 mg Documented by: Objective - Vital Signs Vital signs: Vital Signs Temp 98.3 F 11/09/19 15:00 Pulse 72 11/09/19 15:00 Resp 16 11/09/19 15:00 BP 163/91 11/09/19 15:00 Pulse Ox 97 11/09/19 15:00 Intake & Output 11/08/19 11/09/19 11/09/19 18:59 06:59 18:59 Intake Total 500 150 720 Balance 500 150 720 Intake: Oral 500 150 720 Other: Voiding Method Toilet Toilet # Voids 2 3 - Exam GEN. APPEARANCE: alert, in no apparent distress HEENT : No pallor. No icterus. No JVD. RESPIRATORY EXAM: Bilateral breath sounds was to. No wheeze or crackles. CARDIOVASCULAR EXAM: S1-S2 heard. GI/ABDOMINAL EXAM: Abdomen is soft. Nontender. Normal bowel sounds. EXTREMITIES EXAM: No edema. BACK EXAM: Mild point tenderness on the parasternal area on the left side in the L4-L5 area. NEUROLOGICAL EXAM: alert, oriented X3, Strength is 5 out of 5 in all 4 extremities. PSYCHIATRIC EXAM: normal affect, normal mood SKIN EXAM: No rash - Labs CBC & Chem 7: 11/08/19 05:50 11/09/19 05:41 Labs: Abnormal Lab Results - Last 24 Hours (Table) 11/09/19 Range/Units 05:41 Glucose 110 H (74-99) mg/dL Assessment and Plan Assessment: ASSESSMENT Acute on chronic low back pain failed outpatient therapy History of multiple back surgeries and herniated disc with cervical and back p ain Fibromyalgia Hypothyroidism Anxiety with depression Ongoing nicotine dependence PLAN: Patient had an MRI of the lumbar spine showing disc herniation larger at L4-L5 and also at L3-L4. Also there was a significant scar tissue at L4-L5 disc herniation. Patient has been getting Dilaudid 1 mg every 4 hours, that is changed to 2 mg every 4 hours. Continuing [place] and ketorolac on when necessary basis. Patient was started on 20 mg of prednisone yesterday, she states that takes the edge of the pain. Pain consult pending. Further recommendations to follow depending on the progress of the patient.
[2019-11-10] MEDS: KETOROLAC 30 MG/ML 1 ML VIAL IVP SCH ×3 (00:11→11:56)
[2019-11-10] MEDS: HYDROmorphone 1 MG/ML 1 ML SYRINGE IVP PRN ×2 (02:28→14:38)
[2019-11-10] MEDS: LEVOTHYROXINE 125 MCG TAB PO SCH (06:00)
[2019-11-10 07:29] VITALS: TEMP 98.5
[2019-11-10] MEDS: HYDROcodone/APAP 7.5-325MG 1 EACH TAB PO SCH ×2 (07:33→16:30)
[2019-11-10] MEDS: PANTOPRAZOLE 40 MG TABLET PO SCH (07:33)
[2019-11-10] MEDS: predniSONE 20 MG TAB PO SCH (07:33)
[2019-11-10] MEDS: DULoxetine HCL 30 MG CAPSULE.DR PO SCH (07:34)
[2019-11-10] MEDS: DOCUSATE 100 MG CAP PO SCH (07:37)
[2019-11-10 14:47] VITALS: BP 188/92; PULSE 81
[2019-11-10] MEDS ORDERED: amLODIPine 10 MG TAB PO STA (15:37)
--- NOTE | 2019-11-10 16:34 | P.PAINCN ---
History of Present Illness - Reason for Consult Consult date: 11/10/19 - History of Present Illness This is a 54-year-old patient referred by orthopedic surgery with a chief complaint of chronic pain in low back with radiation to left hip buttocks and legs. patient's of the pain started a few months ago and she has been struggling with increasing low back pain. She was on a course of prednisone and currently takes [place] for pain but nothing seems to take the pain away pain is located in the low back with radiation to the left hip and buttocks and lateral aspect of the left leg. Of note she did had an L4 to L5 discectomy last year with Dr. Burns. She also has had a 6 level cervical fusion in her neck. Nothing seems to make the pain better except maybe laying down. Exacerbating factors are walking sitting or standing for extended periods of time. early the pain as a 9 out of 10. patient has not had pain injections in the past Patient denies adverse drug effects from medications. Patient also denies new-onset weakness, bowel/bladder incontinence, or any other signs or symptoms of cauda equina syndrome. There are no signs of acute intoxication, and no indications of medication diversion or overuse. In addition to above, 13-point review of systems is also negative for chest pain, shortness of breath, changes in vision, changes in hearing, new onset weakness, abdominal pain, diarrhea, extreme fatigue, malaise, fever, skin changes, homicidal or suicidal ideation, or bowel or bladder incontinence. Physical exam: Vital Signs: Reviewed in EMR GENERAL: Well appearing, in mmoderate distress PSYCH: Mood and affect is appropriate. Awake, alert, and oriented SKIN: Skin color, texture, turgor normal, no rashes or lesions HEENT: Normocephalic, atraumatic. EOM intact CV: No pedal edema RESP: Respirations are unlabored, no audible wheezing GI: Abdomen non-distended MUSCULOSKELETAL: patient was in extreme pain and was unable to get out of the bed for physical exam. My limited physical exam did note that strength was intact bilaterally. Straight leg raise bilaterally, severe pain and bilateral lower extremities and the low back. She did have tenderness to palpation over the low back as well Gait: Gait is normal NEUR: Bilateral upper and lower extremity coordination and muscle stretch reflexes are physiologic and symmetric. Negative clonus. No loss of sensation is noted. Cranial nerves are grossly intact. Imaging: MRI of the lumbar spine showed posterior disc herniations on the left side at L3-L4 and L4-L5. Disc herniation was much larger L4-L5. There is also epidural enhancement at the L4-L5 level suggesting the possibility of significant scar tissue. Assessment: 1. lumbar radiculopathy. 2. chronic low back pain in the setting of previous discectomy Plan: 1. Explanation: Diagnoses, prognoses, and multiple treatment options including but not limited to physical therapy, interventional therapies, medication manag ement and surgery were discussed with the patient and all questions were answered to the patient's satisfaction. 2. Investigations: none 3. Counseling: The patient was counseled for 3 minutes on exercise. Specifically, the patient was instructed regarding the importance of exercise in the context of both chronic pain and overall health. 4. Procedures: had a discussion with the patient regarding how she would like to proceed. She has an appointment with Dr. Burns in 9 days and she would like to consult with him before proceeding with any form of epidural steroid injection. if they decide that she can proceed with injection she could benefit from an L4-L5 transforaminal injection. However the nerve is encased in scar tissue the Injection may not be as efficacious. [place] or interlaminar L3- L4 epidural steroid injection 5. Consultations: none 6. Medications: as per primary 7. Disposition: follow-up in clinic as needed Past Medical History Past Medical History: Fibromyalgia, Thyroid Disorder Additional Past Medical History / Comment(s): Chronic cervicle/back pain, herniated discs T11/T12, arterial defect with cardiac ischemia if stressed per pt, legally blind L eye, hypothyroid. History of Any Multi-Drug Resistant Organisms: None Reported Past Surgical History: Back Surgery, Section, Heart Catheterization Additional Past Surgical History / Comment(s): Anerior and posterior cervical surgery-fusions, lumbar lami/discectomy, tummy tuck Past Anesthesia/Blood Transfusion Reactions: No Reported Reaction, Motion Sickness Past Psychological History: Anxiety, Depression Additional Psychological History / Comment(s): Pt resides with her spouse. She is disable d/t back. She is normally independent. Smoking Status: Current every day smoker Past Alcohol Use History: Rare Additional Past Alcohol Use History / Comment(s): Pt started smoking in 1980 and is a ppd smoker. Past Drug Use History: Marijuana Additional Drug Use History / Comment(s): Pt uses marijuana in edibles for pain controll. - Past Family History Mother Family Medical History: Cancer, COPD, Hypertension Additional Family Medical History / Comment(s): Mother had lung cancer. She was a smoker. Father Family Medical History: Cancer Additional Family Medical History / Comment(s): Father at the age of 49 yrs from lung cancer. He was exposed to asbestos thru work and was a smoker. Medications and Allergies Home Medications Medication Instructions Recorded Confirmed Type DULoxetine HCL [Cymbalta] 30 mg PO DAILY 11/07/19 11/07/19 History HYDROcodone/APAP 7.5-325MG [[place] 1 tab PO TID 11/07/19 11/07/19 History 7.5-325] Levothyroxine Sodium [Synthroid] 125 mcg PO DAILY 11/07/19 11/07/19 History Allergies Allergy/AdvReac Type Severity Reaction Status Date / Time No Known Allergies Allergy Verified 11/07/19 13:18 Physical Exam Vitals: Vital Signs Temp Pulse Pulse Resp BP BP Pulse Ox 11/10/19 14:43 98.5 F 81 16 188/92 95 11/10/19 07:30 170/89 11/10/19 07:27 98.5 F 72 16 165/101 100 11/10/19 03:00 97.7 F 65 16 145/87 95 11/09/19 20:01 98.4 F 73 16 188/85 99 Intake and Output 11/10/19 11/10/19 11/10/19 06:59 14:59 22:59 Intake Total 400 Balance 400 Intake: Oral 200 Other 200 Other: Voiding Method Toilet Toilet Toilet Results CBC & Chem 7: 11/08/19 05:50 11/09/19 05:41 PQRS Measure Charge Sheet PQRS Narrative: Blood Pressure [Right Arm] 170/89 Blood Pressure [Left Arm] 188/92 Blood Pressure 176/89 Pain Intensity [Lower Back] 7 Pain Intensity 7 Pain Scale Used Numeric (1 - 10) Scale Used Numeric (1 - 10) Home Medications: Ambulatory Orders DULoxetine HCL [Cymbalta] 30 mg PO DAILY 11/07/19 HYDROcodone/APAP 7.5-325MG [[place] 7.5-325] 1 tab PO TID 11/07/19 Levothyroxine Sodium [Synthroid] 125 mcg PO DAILY 11/07/19
--- NOTE | 2019-11-10 23:38 | P.DS ---
Providers Date of admission: 11/09/19 11:01 Expected date of discharge: 11/10/19 Attending physician: Lynnette Brown Consults: 11/07/19 17:27 Consult Physician Routine Consulting Provider: Jyotsna Brandon Consult Reason/Comments: back pain Do you want consulting provider notified?: Yes [facility] Course: Ms. Cazares is a 54-year-old female with history of chronic low back pain, DJD, anxiety, depression being followed by Dr. Gianluca Roca , in outpatient setting coming in with a chief complaint of worsening of chronic low back pain. The patient follows with Dr. Burns, the spine surgeon. Patient states that she recently had L4-L5 surgery done in May 2018 and apparently was doing okay until last week. Her pain has been worsening for the past 3 months but in the last week had worsened to the point where it was 10 out of 10 in severity. Patient had an MRI of her lower back done showing posterior disc herniation on the left side at L3-L4 and L4-L5. Disc herniation much larger at L4-L5. There is also epidural enhancement at L4-L5 disc herniation this suggests the presence of significant scar tissue. So eventually orthopedic surgery was consulted who evaluated the patient today, and suggested no surgical intervention currently. They're advised pain consult. As pain services were not available over the weekend, the patient was kept over the weekend and had pain has been managed with Dilaudid on as needed basis. She was also started on prednisone. Today she was evaluated by pain services and they suggested epidural steroid injection, the patient refused and would want to discuss with her back surgeon Dr. Burns before any kind of intervention. Patient's blood pressure was running high, so she was discharged home on 10 mg of amlodipine. Patient is advised to follow-up with her primary care physician for her blood pressure management. DISCHARGE DIAGNOSIS Acute on chronic low back pain failed outpatient therapy History of multiple back surgeries and herniated disc with cervical and back pain Fibromyalgia Hypothyroidism Anxiety with depression Ongoing nicotine dependence Newly diagnosed HTN Follow Up ; Advised follow up with her PCP for BP management, Amlodipine 10 mg script provided for 1 month. Patient Condition at Discharge: Fair Plan - Discharge Summary Discharge Rx Participant: No New Discharge Prescriptions: New amLODIPine [Norvasc] 10 mg PO DAILY 30 Days #30 tablet Continue Levothyroxine Sodium [Synthroid] 125 mcg PO DAILY HYDROcodone/APAP 7.5-325MG [[place] 7.5-325] 1 tab PO TID DULoxetine HCL [Cymbalta] 30 mg PO DAILY Discharge Medication List DULoxetine HCL [Cymbalta] 30 mg PO DAILY 11/07/19 [History] HYDROcodone/APAP 7.5-325MG [[place] 7.5-325] 1 tab PO TID 11/07/19 [History] Levothyroxine Sodium [Synthroid] 125 mcg PO DAILY 11/07/19 [History] amLODIPine [Norvasc] 10 mg PO DAILY 30 Days #30 tablet 11/10/19 [Rx] Follow up Appointment(s)/Referral(s): [facility] [NON-STAFF] - 1 Week Gianluca Edwards DO [Primary Care Provider] - 1-2 days Patient Instructions/Handouts: Pain Management (DC), Chronic Pain (DC) Discharge Disposition: HOME SELF-CARE
== END 2019-11-10 18:12 | disposition home or self-care (01) ==
LOC: EC 12:34 → UNDOADMOB 13:07 → 1SOBS 13:07 → INTOOBSV 11-09 11:01 → OBSVTOIN 11-09 11:01 → UNDODISIN 11-10 18:12
PROVIDERS: ADMIT Hospitalist; ATTEND Hospitalist
DX: M51.16 Intervertebral disc disorders with radiculopathy, lumbar region (principal); G89.29 Other chronic pain; I10 Essential (primary) hypertension; H54.8 Legal blindness, as defined in USA; F17.210 Nicotine dependence, cigarettes, uncomplicated; M79.7 Fibromyalgia; I25.9 Chronic ischemic heart disease, unspecified; F41.8 Other specified anxiety disorders; H54.62 Unqualified visual loss, left eye, normal vision right eye; E03.9 Hypothyroidism, unspecified; F17.200 Nicotine dependence, unspecified, uncomplicated; M19.90 Unspecified osteoarthritis, unspecified site; M54.2 Cervicalgia; Z79.899 Other long term (current) drug therapy; Z79.891 Long term (current) use of opiate analgesic; Z79.890 Hormone replacement therapy; Z98.1 Arthrodesis status; Z98.891 History of uterine scar from previous surgery; Z80.1 Family history of malignant neoplasm of trachea, bronchus and lung; Z81.2 Family history of tobacco abuse and dependence; Z82.49 Family history of ischemic heart disease and other diseases of the circulatory system; Z82.5 Family history of asthma and other chronic lower respiratory diseases
CPT/HCPCS: 96376 ×4; 96361; 96374; 96375; 99285; 80053; 80048 ×2; 85652; 83735; 84100; 84484; 85025 ×2; 86140; 81003; 72158; G0378 ×4; J1200; J1100; J1885 ×4; J1170 ×4; J7512 ×3; A9585

== ENCOUNTER 2019-12-25 12:02 | Day surgery (SDC) | payer BC, MEDICARE ==
[2019-12-24 09:30] VITALS: BMI 28.8
[~2019-12-25 12:02] MED LIST: LACTATED RINGERS 1,000 ML IV SCH; LIDOCAINE 1% (10MG/ML) FOR IV START INTRADERMA PRN
[2019-12-25 12:34] VITALS: RESP 16; TEMP 98.9
[2019-12-25] MEDS ORDERED: LIDOCAINE 1% INJ 10MG/ML (20 ML MDV) ONE (13:42)
[2019-12-25] MEDS ORDERED: PROPOFOL 10 MG/ML 20 ML VIAL IV ONE (13:42)
--- NOTE | 2019-12-25 14:39 | P.PCN ---
Date of Procedure: 12/25/19 Description of Procedure: BRIEF HISTORY: Patient is a 54-year-old female presenting for outpatient colonoscopy for screening for malignant neoplasm in the colon. No prior colonoscopy. No change in bowel habits. No blood per rectum. PROCEDURE PERFORMED: Colonoscopy with polypectomy. PREOPERATIVE DIAGNOSIS: Screening for malignant neoplasms of the colon, No prior colonoscopy. ESTIMATED BLOOD LOSS: Minimal. IV sedation per Anesthesia. PROCEDURE: After informed consent was obtained, the patient, was brought into the endoscopy unit. IV sedation was administered by Anesthesia under continuous monitoring. Digital rectal examination was normal. Initially the Olympus CF-190 flexible video colonoscope was then inserted in the rectum, gradually advanced into the cecum without any difficulty. Careful examination was performed as the scope was gradually being withdrawn. Ileocecal valve and the appendiceal orifice were visualized and appeared normal. Prep was excellent. Mucosa of the cecum, ascending colon, transverse colon, descending colon, sigmoid colon, and rectum appeared normal. 3 diminutive polyps measuring 2-3 mm in size removed from the rectum. Retroflexion was performed in the rectum and no lesions were seen. The patient tolerated the procedure well. IMPRESSION: 3 diminutive polyps removed from the rectum with cold forcep polypectomy. Otherwise normal-appearing colon from rectum to cecum. RECOMMENDATIONS: Findings of this examination were discussed with the patient and her daughter. Okay to resume diet. Okay to resume medications. Await pathology from polypectomy. Would recommend repeat colonoscopy in 5 years for colon polyps pending pathology from polypectomy.
[2019-12-25 14:42] VITALS: BP 119/81; PULSE 83
== END 2019-12-25 15:02 | disposition home or self-care (01) ==
LOC: ORWHC2ENDO 12:02
PROVIDERS: ATTEND Internal Medicine
DX: Z12.11 Encounter for screening for malignant neoplasm of colon (principal); K62.1 Rectal polyp; I10 Essential (primary) hypertension; E07.9 Disorder of thyroid, unspecified; M79.7 Fibromyalgia; F32.9 Major depressive disorder, single episode, unspecified; F41.9 Anxiety disorder, unspecified; F17.200 Nicotine dependence, unspecified, uncomplicated; Z79.890 Hormone replacement therapy; Z79.899 Other long term (current) drug therapy; Z98.891 History of uterine scar from previous surgery; Z98.890 Other specified postprocedural states
CPT/HCPCS: 88305; 45380; J2001; J2704

== ENCOUNTER → 2020-10-13 | Outpatient (CLI) | payer BC, MEDICARE ==
--- NOTE | 2020-10-14 15:01 | MM ---
Reason for exam: screening (asymptomatic). Last mammogram was performed 3 years and 8 months ago. History: Family history of breast cancer in paternal aunt. Taking other hormone for 1 month beginning at age 54. Physical Findings: A clinical breast exam by your physician is recommended on an annual basis and results should be correlated with mammographic findings. MG 3D Screening Mammo W/Cad Bilateral CC and MLO view(s) were taken. Prior study comparison: February 13, 2017, bilateral MG screening mammo w CAD. September 14, 2015, bilateral MG screening mammo w CAD. The breast tissue is heterogeneously dense. This may lower the sensitivity of mammography. ASSESSMENT: Negative, BI-RAD 1 RECOMMENDATION: Routine screening mammogram of both breasts in 1 year.
== END | disposition home or self-care (01) ==
LOC: RADMAMWWP 11:35
PROVIDERS: ATTEND Family Medicine
DX: Z12.31 Encounter for screening mammogram for malignant neoplasm of breast (principal); Z80.3 Family history of malignant neoplasm of breast; Z79.899 Other long term (current) drug therapy
CPT/HCPCS: 77063; 77067

== ENCOUNTER → 2021-06-02 | Outpatient (CLI) | payer BC, MEDICARE ==
--- NOTE | 2021-06-02 13:27 | US ---
EXAMINATION TYPE: US thyroid st tissue head/neck DATE OF EXAM: 06/02/2021 COMPARISON: NONE CLINICAL HISTORY: E03.9 HYPOTHYROIDISM, UNSPECIFIED. Hyperthyroidism on meds for years. GLAND SIZE: Right Lobe: 4.7 x 1.1 x 1.0 cm Overall Parenchyma: heterogenous Left Lobe: 2.9 x .5 x .5 cm atrophied Overall Parenchyma: heterogeneous Isthmus Thickness: .2 cm NODULES RIGHT: # of nodules measured on right: 0 LEFT: # of nodules measured on left: 0 ISTHMUS: # of nodules measured in the isthmus: 0 Bilateral neck scanned, no evidence of lymphadenopathy. IMPRESSION: 1. Normal thyroid ultrasound
== END | disposition home or self-care (01) ==
LOC: RADUSWWP 08:54
PROVIDERS: ATTEND Family Medicine
DX: E03.9 Hypothyroidism, unspecified (principal)
CPT/HCPCS: 76536

== ENCOUNTER → 2023-12-14 | Outpatient (CLI) | payer BC, MEDICARE ==
--- NOTE | 2023-12-17 08:32 | MM ---
Reason for Exam: Screening (asymptomatic). Last mammogram was performed 3 year(s) and 2 month(s) ago. Patient History: Menarche at age 15. First Full-Term at age 21. Postmenopausal. Patient has history of breast feeding. Paternal aunt had breast cancer. Risk Values: Beena 5 year model risk: 1.0%. NCI Lifetime model risk: 6.5%. Prior Study Comparison: 09/14/2015 Bilateral Screening Mammogram, LOCATED WITHIN [facility]. 02/13/2017 Bilateral Screening Mammogram, LOCATED [facility]IN [facility]. 10/13/2020 Bilateral Screening Mammogram, LOCATED [facility]IN [facility]. Tissue Density: The breasts are heterogeneously dense, which may obscure small masses. Findings: Analyzed By CAD. Right breast: There is no suspicious group of microcalcifications or new suspicious mass. Left breast: There is no suspicious group of microcalcifications or new suspicious mass. Overall Assessment: Negative, BI-RAD 1 Management: Screening Mammogram of both breasts in [address] [facility] will attempt to contact patient to return for supplemental views and ultrasound if indicated. Patient should continue monthly self-breast exams. A clinical breast exam by your physician is recommended on an annual basis. This exam should not preclude additional follow-up of suspicious palpable abnormalities. Note on Beena scores and lifetime risk: 1. A Beena score greater than 3% is considered moderate risk. If this is the case, consider specialist referral to assess eligibility for a risk reducing agent. 2. If overall lifetime risk for the development of breast cancer is 20% or higher, the patient may qualify for future screening with alternating mammogram and breast MRI. [facility], , 12/17/2023 8:28 AM. Electronically signed and approved by: Pastor Fletcher DO
== END | disposition home or self-care (01) ==
LOC: RADMAMWWP 14:40
PROVIDERS: ATTEND Family Medicine
DX: Z12.31 Encounter for screening mammogram for malignant neoplasm of breast
CPT/HCPCS: 77063; 77067